=== PATIENT | female | born 2000 | race Caucasian/White ===

== ENCOUNTER 2025-04-02 08:47 | Emergency (ER) | payer OTHER ==
[~2025-04-02] VITALS: Ht 167.6 cm; Wt 77.0 kg
[2025-04-02] MEDS ORDERED: ASCO500C14 MT (09:32)
[2025-04-02 10:10] VITALS: BP 124/80; PULSE 80; RESP 15; TEMP 36.7; O2SAT 99
== END 2025-04-02 10:12 | disposition home or self-care (01) ==
LOC: ER 08:47
DX: R04.0 Epistaxis (principal); Z48.01 Encounter for change or removal of surgical wound dressing; Z88.0 Allergy status to penicillin
CPT/HCPCS: 99283